=== PATIENT | female | born 1960 | race African-American/Black ===

== ENCOUNTER 2017-09-19 16:14 | Emergency (ER) | payer OTHER ==
[~2017-09-19] VITALS: Ht 157.5 cm; Wt 105.0 kg
[~2017-09-19 16:14] MED LIST: DYAZ37.57 PO; MELOPOW XX
[2017-09-19 16:20] VITALS: BP 145/88; PULSE 71; RESP 20; TEMP 98; O2SAT 99
[2017-09-19] MEDS ORDERED: MORPHINE SULFATE 4 MG/ML INJ IV PUSH ONE (16:45)
[2017-09-19] MEDS ORDERED: ONDANSETRON HCL 4 MG/2 ML VIAL IV PUSH ONE (16:45)
--- NOTE | 2017-09-19 16:56 | PD ---
HPI Chief Complaint: Fall Time Seen by Provider: 16:19 Travel History International Travel<30 days: No Contact w/Intl Traveler<30days: No Traveled to known affect area: No History of Present Illness HPI 56-year-old female presents to the emergency department via EMS lying on a backboard with c-collar in place for evaluation after a fall. Patient states that a child that weighs approximately 36 pounds was almost falling down the steps. She was able to catch him, but she fell from a standing position with the child landing on her right leg. The patient states that she has a headache and believes she hit her head. She does not believe she lost consciousness. She denies any neck pain or chest pain. No abdominal pain. No nausea, vomiting , diarrhea. She does report some mild right sided back pain. Patient also complains of severe right knee pain. Patient does not take anticoagulants. She has no bleeding disorders. Moderate severity. Movement of the right knee will worsen pain. Lying still will help alleviate the pain. Current pain is 10 /10 with no radiation. Pain is aching, throbbing. PFSH Past Medical History Arthritis: Yes Heart Rhythm Problems: Yes (RIGHT BUNDLE BRANCH BLOCK) Cardiac Catheterization: No Cardiovascular Problems: Yes (R BUNDLE BRANCH BLOCK ) High Cholesterol: No Congestive Heart Failure: No COPD: Yes Diabetes: No Diminished Hearing: No Gastrointestinal Disorders: Yes (ACHALASCHIA DX IN 2009) GERD: Yes (ESOPHAGEAL ACHALASIA) Hypertension: No Respiratory: Yes (COPD) Immunizations Current: No Myocardial Infarction: No ?: Not Menopausal: Yes Past Surgical History Abdominal Surgery: Yes (achalasia repair) Cholecystectomy: Yes Coronary Artery Bypass Graft: No Hysterectomy: Yes Family History Family Myocardial Infarction: Yes (FATHER) Social History Alcohol Use: Yes (RARELY) Tobacco Use: No Substance Use: No Allergies-Medications (Allergen,Severity, Reaction): Coded Allergies: No Known Allergies (Verified , 12/05/12) Reported Meds & Prescriptions Reported Meds & Active Scripts Active Reported Meloxicam Pow 1 XX Dyazide (Triamterene/HCTZ) 37.5 Mg/25 Mg Cap 37.5 Mg PO DAILY 37.5 MG/ 25 MG Review of Systems Except as stated in HPI: all other systems reviewed are Neg Physical Exam Narrative GENERAL: Well-nourished, well-developed female patient, afebrile. SKIN: Focused skin assessment warm/dry. No lacerations or abrasions. HEAD: Normocephalic. Atraumatic. ENT: Mucosa pink and moist. No erythema or exudates. No uvular edema. No uvular , palatal, or tonsillar deviation. Airway patent. Nasal turbinates appear normal without nasal blood, purulent drainage or septal hematoma. Bilateral tympanic membranes are clear without erythema or perforation. EYES: No scleral icterus. No injection or drainage. PERRLA. NECK: Supple, trachea midline. No JVD or lymphadenopathy. CARDIOVASCULAR: Regular rate and rhythm without murmurs, gallops, or rubs. Bilateral radial and pedal pulses are 2+. RESPIRATORY: Breath sounds equal bilaterally. No accessory muscle use. Lungs sounds are clear to auscultation GASTROINTESTINAL: Abdomen soft, non-tender, nondistended. MUSCULOSKELETAL: No cyanosis, or edema. BACK: Nontender without obvious deformity. No CVA tenderness. No midline spinal tenderness. C-collar remains in place due to distracting injury of the right knee. Data Data Last Documented VS Vital Signs Date Time Temp Pulse Resp B/P (MAP) Pulse Ox O2 Delivery O2 Flow Rate FiO2 09/19/17 16:23 77 20 98 Room Air 09/19/17 16:20 98.0 145/88 (107) Orders Orders Ct Brain W/O Iv Contrast(Rout) (09/19/17 ) Ct Cerv Spine W/O Contrast (09/19/17 ) Hip, Uni(Ap&Lat) W Ap Pelvis (09/19/17 ) Knee, Complete (4vws) (09/19/17 ) Morphine Inj (Morphine Inj) (09/19/17 16:45) Ondansetron Inj (Zofran Inj) (09/19/17 16:45) MDM Medical Decision Making Medical Screen Exam Complete: Yes Emergency Medical Condition: Yes Medical Record Reviewed: Yes Interpretation(s) Last Impressions Knee X-Ray 09/19/17 0000 Signed Impressions: Service Date/Time: August 17:13 - CONCLUSION: 3 compartment osteoarthritic change greatest in the medial compartment. Aubrey Akers MD Hip and Pelvis X-Ray 09/19/17 0000 Signed Impressions: Service Date/Time: August 17:13 - CONCLUSION: Negative trauma study Aubrey Akers MD Head CT 09/19/17 0000 Signed Impressions: Service Date/Time: August 17:01 - CONCLUSION: Unremarkable noncontrast CT Aubrey Akers MD Cervical Spine CT 09/19/17 0000 Signed Impressions: Service Date/Time: August 17:01 - CONCLUSION: Negative trauma CT. The esophagus is noted to be dilated with an air-fluid level. Aubrey Akers MD Differential Diagnosis knee fracture vs. contusion vs. sprain vs. closed head injury vs. intracranial abnormality vs. cervical strain vs. fracture Narrative Course 56 year old female presents to the emergency department for evaluation after a fall. Patient arrives on a backboard with a c-collar in place. Patient is cleared from backboard. C-collar remains in place. CT of the brain, CT of the cervical spine, X-ray of the right hip with pelvis and X-ray of the right knee are ordered and pending. Patient is given morphine 4 mg IV, Zofran [address] of the brain is unremarkable. CT of the cervical spine is negative. X-ray of the right hip with pelvis is negative. X-ray of the right knee is negative for acute fracture shows 3 compartment osteoarthritic changes greatest in the medial compartment. Patient is placed in a knee immobilizer and given crutches. She is encouraged to follow-up with orthopedist. She'll be given the name and number for orthopedist on-call today. She verbalizes agreement and understanding. The patient was discharged in stable condition with instructions, including return instructions and follow up instructions. Diagnosis Primary Impression: Right knee sprain Qualified Codes: S83.91XA - Sprain of unspecified site of right knee, initial encounter Additional Impression: Closed head injury Qualified Codes: S09.90XA - Unspecified injury of head, initial encounter Referrals: Quan Alcaraz Jr., MD call for appointment Patient Instructions: General Instructions, Head Injury (ED), Knee Sprain (ED) Additional Instructions: Take pbxo-zni-nlrixca ibuprofen every 6-8 hours as needed for mild to moderate pain. Take hydrocodone/acetaminophen every 6 hours as needed for moderate to severe pain. Caution this can make you drowsy so do not drive after taking. Wear knee immobilizer. Elevate. Ice for 20 minutes 4-5 times daily. Follow-up with orthopedist. Dr. Alcaraz is our orthopedist on-call today. Return to the emergency department for any acute worsening of symptoms. Med/Other Pt SpecificInfo: Prescription(s) given Scripts Hydrocodone-Acetaminophen Liq (Hydrocodone-Acetaminophen Liq) 7.5-325 Mg/15 Ml Soln 10 ML PO Q6H Y for PAIN, #120 ML 0 Refills Prov: Linda Sharp 09/19/17 Disposition: 01 DISCHARGE HOME Condition: Stable Linda Sharp Sep 19, 2017 16:56
--- NOTE | 2017-09-19 17:14 | RADRPT ---
EXAM DATE/TIME: 09/19/2017 17:01 [facility] COMPARISON: No previous studies available for comparison. INDICATIONS : Fall, cephalgia. RADIATION DOSE: 32.28 CTDIvol (mGy) MEDICAL HISTORY : Cardiovascular disease. Chronic obstructive pulmonary disease. SURGICAL HISTORY : Cholecystectomy. Hysterectomy. ENCOUNTER: Initial ACUITY: 1 day PAIN SCALE: 4/10 LOCATION: Bilateral cranial TECHNIQUE: Multiple contiguous axial images were obtained of the head. Using automated exposure control and adj ustment of the mA and/or kV according to patient size, radiation dose was kept as low as reasonably a chievable to obtain optimal diagnostic quality images. DICOM format image data is available electro nically for review and comparison. FINDINGS: CEREBRUM: The ventricles are normal for age. No evidence of midline shift, mass lesion, hemorrhage or acute in farction. No extra-axial fluid collections are seen. POSTERIOR FOSSA: The cerebellum and brainstem are intact. The 4th ventricle is midline. The cerebellopontine angle i s unremarkable. EXTRACRANIAL: The visualized portion of the orbits is intact. SKULL: The calvaria is intact. No evidence of skull fracture. CONCLUSION: Unremarkable noncontrast CT Aubrey Akers MD on September 19, 2017 at 17:10 Board Certified Radiologist. This report was verified electronically.
--- NOTE | 2017-09-19 17:36 | RADRPT ---
EXAM DATE/TIME: 09/19/2017 17:01 [facility] COMPARISON: No previous studies available for comparison. INDICATIONS : Fall, neck pain. RADIATION DOSE: 20.34 CTDIvol (mGy) MEDICAL HISTORY : Cardiovascular disease. Chronic obstructive pulmonary disease. SURGICAL HISTORY : Cholecystectomy. Hysterectomy. ENCOUNTER: Initial ACUITY: 1 day PAIN SCALE: 4/10 LOCATION: neck TECHNIQUE: Volumetric scanning of the cervical spine was performed. Multiplanar reconstructions i n the sagittal, coronal and oblique axial planes were performed. Using automated exposure control a nd adjustment of the mA and/or kV according to patient size, radiation dose was kept as low as reason ably achievable to obtain optimal diagnostic quality images. DICOM format image data is available e lectronically for review and comparison. FINDINGS: The sagittal reconstructions demonstrate normal alignment and normal prevertebral soft tissues. The d ens is intact and there is a normal atlantoaxial relationship. Degenerative changes present at C4-5 a nd C5-6 levels with disc space narrowing and anterior spurring. The axial images demonstrate that the vertebral bodies and posterior elements are intact. The soft ti ssues are within normal limits. There is no evidence of acute fracture or malalignment. There is dila tation of the esophagus with air-fluid level. CONCLUSION: Negative trauma CT. The esophagus is noted to be dilated with an air-fluid level . Aubrey Akers MD on September 19, 2017 at 17:32 Board Certified Radiologist. This report was verified electronically.
--- NOTE | 2017-09-19 17:37 | RADRPT ---
EXAM DATE/TIME: 09/19/2017 17:13 [facility] COMPARISON: No previous studies available for comparison. INDICATIONS : Pain due to fall. MEDICAL HISTORY : None. SURGICAL HISTORY : None. ENCOUNTER: Initial ACUITY: 1 day PAIN SCORE: 10/10 LOCATION: Right hip, anterior FINDINGS: Examination of the right hip was performed with AP Pelvis. The primary and secondary trabecular damaris heriberto of the femoral neck is intact. The hip joint is of normal width without significant sclerosis or bony hypertrophy. The acetabulum is grossly intact. CONCLUSION: Negative trauma study Aubrey Akers MD on September 19, 2017 at 17:35 Board Certified Radiologist. This report was verified electronically.
--- NOTE | 2017-09-19 17:52 | RADRPT ---
EXAM DATE/TIME: 09/19/2017 17:13 [facility] COMPARISON: No previous studies available for comparison. INDICATIONS : Knee pain due to fall. MEDICAL HISTORY : None. SURGICAL HISTORY : None. ENCOUNTER: Initial ACUITY: 1 day PAIN SCORE: 10/10 LOCATION: Right knee FINDINGS: A standard 4 view examination of the knee was obtained and demonstrates 3 compartment osteoarthritic change with joint space loss, sclerosis and spurring greatest in the medial compartment. There is no acute fracture or malalignment. There is fullness in the suprapatellar bursa region consistent with a small joint effusion. There is no definite joint body. There is mild osteopenia and normal alignment . CONCLUSION: 3 compartment osteoarthritic change greatest in the medial compartment. Aubrey Akers MD on September 19, 2017 at 17:49 Board Certified Radiologist. This report was verified electronically.
[2017-09-19] MEDS ORDERED: HYDR1SOL3 PO (18:42)
== END 2017-09-19 19:22 | disposition home or self-care (01) ==
LOC: NEPE 16:14
DX: S83.91XA Sprain of unspecified site of right knee, initial encounter (principal); S09.90XA Unspecified injury of head, initial encounter; M54.9 Dorsalgia, unspecified; J44.9 Chronic obstructive pulmonary disease, unspecified; W10.9XXA Fall (on) (from) unspecified stairs and steps, initial encounter; Y99.0 Civilian activity done for income or pay
CPT/HCPCS: 70450; 72125; 73502; 73564; 96374; 96375; 99285; E0113; J2270; J2405; L1830